=== PATIENT | male | born 1990 | race Caucasian/White ===

== ENCOUNTER → 2021-10-30 | Outpatient (CLI) | payer OTHER | END | disposition home or self-care (01) | LOC: MSR 09:30 | PROVIDERS: ATTEND Chiropractor | DX: M13.80 Other specified arthritis, unspecified site (principal); B00.9 Herpesviral infection, unspecified; T14.8XXA Other injury of unspecified body region, initial encounter; X58.XXXA Exposure to other specified factors, initial encounter; Y93.89 Activity, other specified; Y92.89 Other specified places as the place of occurrence of the external cause; Y99.8 Other external cause status | CPT/HCPCS: 71111; 86695; 86696 ==